=== PATIENT | female | born 2000 | race Caucasian/White ===

== ENCOUNTER 2021-06-14 15:14 | Observation (INO) | payer OTHER ==
[2021-06-14 16:23] VITALS: BP 119/69; PULSE 81
--- NOTE | 2021-06-15 08:46 | XRAY ---
Indication: Nonreactive stress test. Ultrasound biophysical profile exam performed. There is a single intrauterine with heart rate 150 BPM. Four-quadrant FERCHO is 10.9 cm, largest pocket 3.1 cm. 2 points given for movements, tone, and qualitative amniotic fluid volume. 0 points for breathing. Impression: Total biophysical profile score is 6 out of 8.
== END 2021-06-14 18:00 | disposition home or self-care (01) ==
LOC: OB 15:14
PROVIDERS: ADMIT Family Medicine; ATTEND Family Medicine
DX: Z34.83 Encounter for supervision of other normal pregnancy, third trimester (principal); Z3A.28 28 weeks gestation of pregnancy
CPT/HCPCS: 59025; 76819; G0378

== ENCOUNTER 2021-06-21 13:34 | Observation (INO) | payer OTHER ==
[2021-06-21 13:56] LABS: BASOPHIL % 0.1 % (0.0-0.4); Basophil (Absolute #) 0.01 (0-0.4); Eosinophil % 0.7 % (0.00-5.0); Eosinophil (Absolute #) 0.05 (0-0.5); Hematocrit 36.3 % (35-47); Lymphocyte (Absolute #) 1.83 (1.0-4.6); Lymphocytes % 24.2 % (24.0-44.0); Mean Cell Volume 95.8 fl (78-100); Mean Corpuscular Hemoglobin 31.7 pg (26-32); Mean Corpuscular Hgb Concent. 33.1 g/dl (32-36); Mean Platelet Volume 8.9 fl (7.5-11.0); Monocyte (Absolute #) 0.46 (0.0-1.3); Monocytes % 6.1 % (0.0-12.0); Neutrophil % 68.9 % (36.0-66.0); Platelet Count 269 K/mm3 (150-450); Red Blood Count 3.79 M/mm3 (4.1-5.4); Red Cell Distribution Width 12.8 % (11.5-14.0); White Blood Count 7.6 K/mm3 (4.0-10.5)
[2021-06-21 17:08] VITALS: BP 106/58; PULSE 92
== END 2021-06-21 16:45 | disposition home or self-care (01) ==
LOC: OB 13:34
PROVIDERS: ADMIT Family Medicine; ATTEND Family Medicine
DX: Z34.83 Encounter for supervision of other normal pregnancy, third trimester (principal); Z3A.29 29 weeks gestation of pregnancy
CPT/HCPCS: 36415; 59025; 82947; 85025; G0378

== ENCOUNTER 2021-06-28 14:09 | Observation (INO) | payer OTHER ==
[2021-06-28 14:41] VITALS: BP 111/61; PULSE 104; O2SAT 97
== END 2021-06-28 16:05 | disposition home or self-care (01) ==
LOC: OB 14:09
PROVIDERS: ADMIT Family Medicine; ATTEND Family Medicine
DX: Z34.83 Encounter for supervision of other normal pregnancy, third trimester (principal); Z3A.30 30 weeks gestation of pregnancy
CPT/HCPCS: 59025; G0378

== ENCOUNTER 2021-07-05 20:19 | Observation (INO) | payer OTHER ==
[2021-07-05 23:08] VITALS: BP 125/71; PULSE 86; O2SAT 97
== END 2021-07-05 21:50 | disposition home or self-care (01) ==
LOC: OB 20:19
PROVIDERS: ADMIT Family Medicine; ATTEND Family Medicine
DX: Z34.83 Encounter for supervision of other normal pregnancy, third trimester (principal); Z3A.31 31 weeks gestation of pregnancy
CPT/HCPCS: 59025; G0378

== ENCOUNTER 2021-07-26 08:38 | Observation (INO) | payer OTHER ==
[2021-07-26 09:06] VITALS: BP 114/73; PULSE 121
== END 2021-07-26 09:20 | disposition home or self-care (01) ==
LOC: OB 08:38
PROVIDERS: ADMIT Family Medicine; ATTEND Family Medicine
DX: Z34.83 Encounter for supervision of other normal pregnancy, third trimester (principal); Z3A.33 33 weeks gestation of pregnancy
CPT/HCPCS: 59025; G0378

== ENCOUNTER 2021-08-19 19:26 | Observation (INO) | payer OTHER ==
[2021-08-19 20:28] LABS: Amphetamine,Urine NEGATIVE (NEGATIVE); Benzodiazepine,Urine NEGATIVE (NEGATIVE); Cocaine,Urine NEGATIVE (NEGATIVE); Methadone,Urine NEGATIVE (NEGATIVE); Opiate,Urine NEGATIVE (NEGATIVE); PCP,Urine NEGATIVE (NEGATIVE); THC,Urine NEGATIVE (NEGATIVE)
[2021-08-19 20:41] LABS: Barbiturate,Urine NEGATIVE (NEGATIVE)
[2021-08-19 21:49] LABS: Appearance CLEAR (CLEAR); Bacteria RARE /HPF (NEGATIVE); Bilirubin NEGATIVE (NEGATIVE); Blood NEGATIVE Ery/ul (0-5); Epithelial Cells RARE /HPF (FEW); Glucose NEGATIVE (NEGATIVE); Ketones SMALL (NEGATIVE); Leukocyte Esterase NEGATIVE (NEGATIVE); Mucus SLIGHT /HPF (NEGATIVE); Nitrite NEGATIVE (NEGATIVE); Protein,Urine Dip NEGATIVE (Negative); Specific Gravity 1.016 (1.005-1.025); Urobilinogen NEGATIVE mg/dL (0-1); WBC 0-2 /HPF (0-5)
[2021-08-19 23:14] VITALS: BP 115/66; PULSE 88; O2SAT 99
== END 2021-08-19 23:33 | disposition home or self-care (01) ==
LOC: UNDOADMOB 19:26 → OB 19:26 → UNDODISOB 23:33
PROVIDERS: ADMIT Family Medicine; ATTEND Family Medicine
DX: Z34.83 Encounter for supervision of other normal pregnancy, third trimester (principal); Z3A.37 37 weeks gestation of pregnancy
CPT/HCPCS: 80307; 81001; G0378

== ENCOUNTER 2021-08-24 09:05 | Observation (INO) | payer OTHER ==
[2021-08-24 10:25] LABS: Appearance CLOUDY (CLEAR); Bilirubin NEGATIVE (NEGATIVE); Blood NEGATIVE Ery/ul (0-5); Glucose NEGATIVE (NEGATIVE); Ketones NEGATIVE (NEGATIVE); Leukocyte Esterase NEGATIVE (NEGATIVE); Mucus SLIGHT /HPF (NEGATIVE); Nitrite NEGATIVE (NEGATIVE); Protein,Urine Dip NEGATIVE (Negative); Specific Gravity 1.013 (1.005-1.025); Urobilinogen NEGATIVE mg/dL (0-1); WBC 0-2 /HPF (0-5)
[2021-08-24 14:57] VITALS: BP 116/62; PULSE 79
== END 2021-08-24 14:35 | disposition home or self-care (01) ==
LOC: OB 09:05
PROVIDERS: ADMIT Family Medicine; ATTEND Family Medicine
DX: Z34.83 Encounter for supervision of other normal pregnancy, third trimester (principal); Z3A.38 38 weeks gestation of pregnancy
CPT/HCPCS: 59025; 81001; 84112; G0378

== ENCOUNTER 2021-08-28 11:19 | Inpatient (IN) | payer OTHER ==
[2021-08-28] MEDS ORDERED: XYLOCAINE 1% HCL 20 ML MDV IJ PRN (11:20)
[2021-08-28] MEDS ORDERED: Lactated Ringers 1,000 ML IV ONE (11:22)
[2021-08-28] MEDS ORDERED: Dermoplast Spray TP PRN (11:29)
[2021-08-28] MEDS ORDERED: LANSINOH 40 GM TOP PRN (11:29)
[2021-08-28] MEDS ORDERED: NORCO 5/325 MG PO PRN (11:29)
[2021-08-28] MEDS ORDERED: PITOCIN 30 UNITS/ LR 500 ML 30 UNITS/500 ML IV.SOLN. IV SCH (11:30)
[2021-08-28 11:40] LABS: Absolute Neutrophil Ct (ANC) 6.64 (1.4-6.9); BASOPHIL % 0.1 % (0.0-0.4); Basophil (Absolute #) 0.01 (0-0.4); Eosinophil % 0.7 % (0.00-5.0); Eosinophil (Absolute #) 0.07 (0-0.5); Hematocrit 39.8 % (35-47); Hemoglobin 13.2 gm/dl (12.0-16.0); Lymphocyte (Absolute #) 2.69 (1.0-4.6); Lymphocytes % 26.5 % (24.0-44.0); Mean Cell Volume 92.8 fl (78-100); Mean Corpuscular Hemoglobin 30.8 pg (26-32); Mean Corpuscular Hgb Concent. 33.2 g/dl (32-36); Mean Platelet Volume 9.7 fl (7.5-11.0); Monocyte (Absolute #) 0.75 (0.0-1.3); Monocytes % 7.4 % (0.0-12.0); Neutrophil % 65.3 % (36.0-66.0); Platelet Count 368 K/mm3 (150-450); Red Blood Count 4.29 M/mm3 (4.1-5.4); Red Cell Distribution Width 12.8 % (11.5-14.0); White Blood Count 10.2 K/mm3 (4.0-10.5)
[2021-08-28] MEDS: MOTRIN 400 MG PO PRN ×2 (12:07→21:40)
[2021-08-28] MEDS: TUCKS TP PRN (12:13)
[2021-08-28 14:08] LABS: Amphetamine,Urine NEGATIVE (NEGATIVE); Barbiturate,Urine NEGATIVE (NEGATIVE); Benzodiazepine,Urine NEGATIVE (NEGATIVE); Cocaine,Urine NEGATIVE (NEGATIVE); Methadone,Urine NEGATIVE (NEGATIVE); Opiate,Urine NEGATIVE (NEGATIVE); PCP,Urine NEGATIVE (NEGATIVE); THC,Urine NEGATIVE (NEGATIVE)
[2021-08-28] MEDS: TYLENOL EXTRA STRENGTH 500 MG PO PRN (18:21)
[2021-08-28] MEDS: Lactated Ringers 1,000 ML IV SCH ×2 (21:40→21:51)
[2021-08-28] MEDS: Colace 100 MG PO SCH (21:40)
[2021-08-29] MEDS: TYLENOL EXTRA STRENGTH 500 MG PO PRN ×3 (05:58→20:10)
[2021-08-29 06:11] LABS: Absolute Neutrophil Ct (ANC) 6.93 (1.4-6.9); BASOPHIL % 0.2 % (0.0-0.4); Basophil (Absolute #) 0.02 (0-0.4); Eosinophil % 0.8 % (0.00-5.0); Eosinophil (Absolute #) 0.09 (0-0.5); Hematocrit 36.4 % (35-47); Lymphocytes % 26.2 % (24.0-44.0); Mean Cell Volume 94.3 fl (78-100); Mean Corpuscular Hemoglobin 31.1 pg (26-32); Mean Platelet Volume 9.8 fl (7.5-11.0); Monocyte (Absolute #) 0.84 (0.0-1.3); Monocytes % 7.9 % (0.0-12.0); Neutrophil % 64.9 % (36.0-66.0); Platelet Count 312 K/mm3 (150-450); Red Blood Count 3.86 M/mm3 (4.1-5.4); Red Cell Distribution Width 12.7 % (11.5-14.0); White Blood Count 10.7 K/mm3 (4.0-10.5)
[2021-08-29] MEDS ORDERED: Adacel Vial IM ONE (10:00)
[2021-08-29] MEDS: FERREX 150 PO SCH (10:20)
[2021-08-29] MEDS: Colace 100 MG PO SCH ×3 (10:20→20:15)
--- NOTE | 2021-08-29 10:33 | PCM.NOTE ---
Date and Time: 08/29/21 1027 Subjective Assessment: PPD 1 SP PT RESTING IN CHAIR AND DOING WELL VSS AFEBRILE ABD; SOFT UTERUS; FIRM LOCHIA; MILD HGB; 12 A/P SP PPD1 DC HOME TOMORROW FU WITH PROVIDER IN 3 WKS OBJECTIVE DATA Vital Signs: Vital Signs - 24 hr Temp Pulse Resp BP BP Pulse Ox 08/29/21 04:00 98.5 F 61 18 118/72 100 08/28/21 20:00 98.7 F 69 16 110/70 98 08/28/21 18:34 97.6 F 72 20 113/70 99 08/28/21 14:30 71 18 108/59 08/28/21 13:30 75 18 113/57 08/28/21 12:30 69 18 129/82 08/28/21 12:15 78 18 127/79 08/28/21 12:00 69 18 130/76 08/28/21 11:45 98.0 F 84 20 122/73 08/28/21 11:19 98.0 F 71 18 122/73 108/59 100 Pain Assessment - Last Documented Pain Intensity [Anterior/ 2 Posterior] Pain Intensity 3 Pain Scale Used 0-10 Pain Scale Intake and Output: Intake & Output 08/26/21 08/27/21 08/28/21 08/29/21 11:59 11:59 11:59 11:59 Intake Total 50 480 Output Total 10 Balance 40 480 Weight 56.699 kg Lab Results: Lab Results-Last 24 Hours 08/28/21 08/28/21 08/29/21 Range/Units 11:21 11:21 06:06 WBC 10.2 10.7 H (4.0-10.5) K/mm3 RBC 4.29 3.86 L (4.1-5.4) M/mm3 Hgb 13.2 12.0 (12.0-16.0) gm/dl Hct 39.8 36.4 (35-47) % MCV 92.8 94.3 (78-100) fl MCH 30.8 31.1 (26-32) pg MCHC 33.2 33.0 (32-36) g/dl RDW 12.8 12.7 (11.5-14.0) % Plt Count 368 312 (150-450) K/mm3 MPV 9.7 9.8 (7.5-11.0) fl Gran % 65.3 64.9 (36.0-66.0) % Eos # (Auto) 0.07 0.09 (0-0.5) Absolute Lymphs (auto) 2.69 2.80 (1.0-4.6) Absolute Monos (auto) 0.75 0.84 (0.0-1.3) Lymphocytes % 26.5 26.2 (24.0-44.0) % Monocytes % 7.4 7.9 (0.0-12.0) % Eosinophils % 0.7 0.8 (0.00-5.0) % Basophils % 0.1 0.2 (0.0-0.4) % Absolute Granulocytes 6.64 6.93 H (1.4-6.9) Basophils # 0.01 0.02 (0-0.4) Urine Opiates Level NEGATIVE (NEGATIVE) Ur Methadone NEGATIVE (NEGATIVE) Urine Barbiturates NEGATIVE (NEGATIVE) Ur Phencyclidine (PCP) NEGATIVE (NEGATIVE) Urine Amphetamine NEGATIVE (NEGATIVE) U Benzodiazepine Level NEGATIVE (NEGATIVE) Urine Cocaine NEGATIVE (NEGATIVE) Urine Marijuana (THC) NEGATIVE (NEGATIVE) Multi-Disciplinary Progress Notes: Multi-Disciplinary Progress Notes 08/28/21 12:50 Respiratory Note by Erica Hoang PRESENT DURING DELIVERY. NO PROBLEMS NOTED. Initialized on 08/28/21 12:50 - END OF NOTE Assessment/Plan (1) Vaginal delivery Current Visit: Yes Status: Acute Code(s): O80 - ENCOUNTER FOR FULL-TERM UNCOMPLICATED DELIVERY
--- NOTE | 2021-08-29 10:36 | PCM.DS ---
Discharge Summary Date of Admission: 08/28/21 11:19 Admitting Physician: TEVIN ROBLES DO Consults: Consults on Case 08/28/21 11:29 Notify Physician ROUTINE 08/28/21 18:39 Navigation ONCE Primary Care Provider: LION FERNANDEZ BERNICE Allergies Allergies vancomycin Allergy (Severe, Verified 08/19/21 20:30) Itching Hospital Summary - Hospital Course Hospital Course: PT WAS ADMITTED ON AUG 28 FOR BEING IN LABOR AND ARRIVED TO LABOR AND DELIVERY AND WAS 9CM DILATED. PT SUBSEQUENTLY DELIVERED LIVE BABY BOY VIA WITHOUT COMPLICATION. DURING PERIOD DID WELL AND NOW STABLE FOR DISCHARGE. ALL QUESTIONS ANSWERED TO HER SATISFACTION AND WAS ADVISED TO FU WITH HER PROVIDER IN 3 WKS. STABLE HGB PRIOR TO DISCHARGE AT 12. - Vitals & Intake/Output Vital Signs: Vital Signs Temperature 98.5 F 08/29/21 04:00 Pulse Rate 61 08/29/21 04:00 Respiratory Rate 18 08/29/21 04:00 Blood Pressure 118/72 08/29/21 04:00 O2 Sat by Pulse Oximetry 100 08/29/21 04:00 Intake & Output: Intake & Output 08/26/21 08/27/21 08/28/21 08/29/21 11:59 11:59 11:59 11:59 Intake Total 50 480 Output Total 10 Balance 40 480 Weight 56.699 kg - Lab Result Diagrams: 08/29/21 06:06 Lab Results-Last 24 Hrs: Lab Results-Last 24 Hours 08/28/21 08/28/21 08/29/21 Range/Units 11:21 11:21 06:06 WBC 10.2 10.7 H (4.0-10.5) K/mm3 RBC 4.29 3.86 L (4.1-5.4) M/mm3 Hgb 13.2 12.0 (12.0-16.0) gm/dl Hct 39.8 36.4 (35-47) % MCV 92.8 94.3 (78-100) fl MCH 30.8 31.1 (26-32) pg MCHC 33.2 33.0 (32-36) g/dl RDW 12.8 12.7 (11.5-14.0) % Plt Count 368 312 (150-450) K/mm3 MPV 9.7 9.8 (7.5-11.0) fl Gran % 65.3 64.9 (36.0-66.0) % Eos # (Auto) 0.07 0.09 (0-0.5) Absolute Lymphs (auto) 2.69 2.80 (1.0-4.6) Absolute Monos (auto) 0.75 0.84 (0.0-1.3) Lymphocytes % 26.5 26.2 (24.0-44.0) % Monocytes % 7.4 7.9 (0.0-12.0) % Eosinophils % 0.7 0.8 (0.00-5.0) % Basophils % 0.1 0.2 (0.0-0.4) % Absolute Granulocytes 6.64 6.93 H (1.4-6.9) Basophils # 0.01 0.02 (0-0.4) Urine Opiates Level NEGATIVE (NEGATIVE) Ur Methadone NEGATIVE (NEGATIVE) Urine Barbiturates NEGATIVE (NEGATIVE) Ur Phencyclidine (PCP) NEGATIVE (NEGATIVE) Urine Amphetamine NEGATIVE (NEGATIVE) U Benzodiazepine Level NEGATIVE (NEGATIVE) Urine Cocaine NEGATIVE (NEGATIVE) Urine Marijuana (THC) NEGATIVE (NEGATIVE) - Procedures and Test Procedures and Tests throughout Hospitalization: Therapy Orders & Screens 08/28/21 12:51 Standby ROUTINE Comment: Diagnosis: IUP 08/28/21 17:23 Smoking Cessation Education ONCE Comment: Diagnosis: IUP Smoking Status: Current some day smoker How long have you smoked: 3 yrs Have you smoked in the past 12 months: Yes Approximately how many cigarettes per day: Vapes Do you dip or chew tobacco: No Final Diagnosis/Problem List - Final Discharge Diagnosis/Problem (1) Vaginal delivery Current Visit: Yes Status: Acute Code(s): O80 - ENCOUNTER FOR FULL-TERM UNCOMPLICATED DELIVERY - Discharge Disposition: Home, Self-Care Condition: Stable Prescriptions: No Action Vits W-Ca,Fe,FA(<1Mg) [] 1 tab PO DAILY Follow up with: LION FERNANDEZ MD [Primary Care Provider] - 3 weeks (NOTHING PER VAGINA FOR 4 WKS)
[2021-08-29] MEDS: TUCKS TP PRN (16:46)
[2021-08-29] MEDS: MOTRIN 400 MG PO PRN (16:46)
[2021-08-30] MEDS: MOTRIN 400 MG PO PRN (03:11)
[2021-08-30] MEDS: Colace 100 MG PO SCH (09:05)
[2021-08-30] MEDS: FERREX 150 PO SCH (09:05)
[2021-08-30] MEDS: TYLENOL EXTRA STRENGTH 500 MG PO PRN (09:05)
[2021-08-30 10:36] VITALS: BP 120/76; PULSE 68; O2SAT 100
[2021-09-04 12:43] LABS: HBsAg Screen Negative (Negative)
== END 2021-08-30 12:20 | disposition home or self-care (01) | DRG 807 ==
LOC: OB 11:19
PROVIDERS: ADMIT Obstetrics & Gynecology; ATTEND Obstetrics & Gynecology
PROC: 10E0XZZ Delivery of Products of Conception, External Approach (ICD-10-PCS; principal; 2021-08-28)
DX: O69.0XX0 Labor and delivery complicated by prolapse of cord, not applicable or unspecified (principal); Z37.0 Single live birth; Z3A.39 39 weeks gestation of pregnancy
CPT/HCPCS: 36415; 80307; 85025; 87340; 90715; 94799; A9270-GY